=== PATIENT | male | born 1980 | race Caucasian/White ===

== ENCOUNTER 2019-04-13 17:29 | Emergency (ER) | payer OTHER ==
[2019-04-13 17:57] VITALS: BP 123/68
[2019-04-13 18:36] LABS: Influenza B Molecular POSITIVE (Negative)
--- NOTE | 2019-04-13 18:53 | UC ---
FLU HPI - HPI Summary HPI Summary: 2 wks of cough, fever, body aches, chest pain w/ coughing, eye pain. no sick contacts. able to drink fluids and urinate normally. did not get flu vaccine this year. - History of Current Complaint Chief Complaint: UCGeneralIllness Stated Complaint: FLU SYMPTOMS Time Seen by Provider: 04/13/19 18:35 Hx Obtained From: Patient Pain Intensity: 8 Pain Scale Used: 0-10 Numeric - Allergy/Home Medications Allergies/Adverse Reactions: Allergies Allergy/AdvReac Type Severity Reaction Status Date / Time acetaminophen Allergy Anaphylatic Verified 04/13/19 17:58 [From Excedrin Migraine] Shock aspirin Allergy Anaphylatic Verified 04/13/19 17:58 [From Excedrin Migraine] Shock caffeine Allergy Anaphylatic Verified 04/13/19 17:58 [From Excedrin Migraine] Shock Home Medications: Home Medications Benzonatate CAP* [Tessalon 100 MG CAP*] 100 mg PO TID 21 Days #7 cap 04/13/19 [ Rx] Dm/PE/Acetaminophen/Doxylamine [Vicks Dayquil-Nyquil Cold-Flu] 1 tab PO ONCE PRN 04/13/19 [History Confirmed 04/13/19] PMH/Surg Hx/FS Hx/Imm Hx - Additional Past Medical History Additional PMH: no chronic illness Previously Healthy: Yes - Surgical History Surgical History: Yes Surgery Procedure, Year, and Place: brain cyst - Family History Known Family History: Positive: Non-Contributory - Social History Alcohol Use: Rare Substance Use Type: None Smoking Status (MU): Never Smoked Tobacco Review of Systems All Other Systems Reviewed And Are Negative: Yes Constitutional: Positive: Fever, Chills, Fatigue Skin: Negative: Rash Eyes: Positive: Other - eye pain Respiratory: Positive: Cough. Negative: Shortness Of Breath Cardiovascular: Positive: Other - pleurtic chest pain Musculoskeletal: Positive: Myalgia Neurological/Mental Status: Positive: Headache. Negative: Weakness Physical Exam Triage Information Reviewed: Yes Appearance: Well-Appearing, Ill-Appearing Vital Signs: Initial Vital Signs Temp 100.9 F 04/13/19 17:52 Pulse 83 04/13/19 17:52 Resp 18 04/13/19 17:52 BP 123/68 04/13/19 17:52 Pulse Ox 97 04/13/19 17:52 Vital Signs Reviewed: Yes Eyes: Positive: Conjunctiva Clear Neck: Positive: Supple Respiratory Exam: Normal Cardiovascular Exam: Normal Neurological: Positive: Alert, Fatigued Skin: Negative: Rashes Flu Course/Dx - Course Course Of Treatment: flu like illness x 2 wks and vitals good today but low grade fever. ON exam he did appear ill and + rapid flu. we discussed ways to manage symptoms, tessalon perles for cough. Lungs clear on exam. he will go to ED if breathing begins to worsen. - Differential Dx/Diagnosis Differential Diagnosis/HQI/PQRI: Influenza, Upper Respiratory Infection, Other Provider Diagnosis: Influenza Discharge ED - Sign-Out/Discharge Documenting (check all that apply): Patient Departure All imaging exams completed and their final reports reviewed: No Studies - Discharge Plan Condition: Good Disposition: HOME Prescriptions: Benzonatate CAP* [Tessalon 100 MG CAP*] 100 mg PO TID 21 Days #7 cap Patient Education Materials: Influenza (ED) Forms: *Work Release Referrals: Gideon Joseph MD [Primary Care Provider] - Additional Instructions: Please go to emergency room if not improving. We recommend the yearly flu vaccine to offer protection from this virus. - Billing Disposition and Condition Condition: GOOD Disposition: Home
== END 2019-04-13 19:11 | disposition home or self-care (01) ==
LOC: UCEAST 17:29
DX: J10.1 Influenza due to other identified influenza virus with other respiratory manifestations (principal); Z88.6 Allergy status to analgesic agent; Z88.8 Allergy status to other drugs, medicaments and biological substances
CPT/HCPCS: 99211; G0463